=== PATIENT | male | born 1995 | race American Indian/Alaskan Native ===

== ENCOUNTER 2017-07-14 21:35 | Emergency (ER) | payer OTHER ==
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
[2017-07-14 21:42] VITALS: BP 149/99; PULSE 93; RESP 16; TEMP 97.3; O2SAT 97
== END 2017-07-14 21:47 ==
DX: T22.011A Burn of unspecified degree of right forearm, initial encounter (principal); X19.XXXA Contact with other heat and hot substances, initial encounter

== ENCOUNTER 2017-10-26 22:47 | Emergency (ER) | payer OTHER ==
[2017-10-26] MEDS ORDERED: NS 1,000 ML IV ONE (22:56)
[2017-10-26] MEDS ORDERED: LORazepam 2 MG/ML INJ IVP ONE (22:56)
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
[2017-10-26] MEDS ORDERED: TAMSULOSIN HCL 0.4 MG CAP PO ONE (23:12)
[2017-10-26] MEDS ORDERED: fentaNYL 100 MCG/2 ML INJ ONE (23:15)
[2017-10-26 23:23] LABS: PLATELET COUNT 380 10^3/uL (150-400)
[2017-10-26] MEDS ORDERED: LORazepam 2 MG/ML INJ ONE (23:57)
[2017-10-27] MEDS ORDERED: LORazepam 2 MG/ML INJ IVP ONE
[2017-10-27 00:17] VITALS: BP 121/84; PULSE 77; RESP 16; TEMP 98.4; O2SAT 97
== END 2017-10-27 00:17 ==
LOC: EDUNIT#
DX: R45.1 Restlessness and agitation (principal); F10.921 Alcohol use, unspecified with intoxication delirium; R74.0 Nonspecific elevation of levels of transaminase and lactic acid dehydrogenase [LDH]; E86.9 Volume depletion, unspecified
CPT/HCPCS: 96374; G0480; J2060; J3010